=== PATIENT | female | born 1955 | race Caucasian/White ===

== ENCOUNTER 2019-03-20 06:51 | Observation (INO) | payer OTHER ==
[~2019-03-20] VITALS: Ht 162.6 cm; Wt 88.5 kg
[~2019-03-20 06:51] MED LIST: Z.0.PRILOSEC40 MG; Z.0.ZESTRIL10 MG; Z.0.ZESTRIL20 MG PO; [UNRECOGNIZED DRUG - OTHER]
--- OUTSIDE RECORDS SUMMARY | 2019-03-20 06:54 | XMS REPORT | Summary of Care ---
Author Author [facility] Organization [facility] Address Unknown Phone Unavailable Encounter HQ Encntr_alias(FIN) [id number] Date(s): 06/03/17 - 06/03/17 [facility] [address] [place] [address]- [phone] Discharge Disposition: Home or Self Care Attending Physician: Naga Laurent MD Referring Physician: Naga Lauernt MD Vital Signs No data available for this section Problem List No data available for this section Allergies, Adverse Reactions, Alerts No data available for this section Medications No data available for this section Results No data available for this section Immunizations No data available for this section Procedures No data available for this section Social History No data available for this section Assessment and Plan No data available for this section
--- OUTSIDE RECORDS SUMMARY | 2019-03-20 06:54 | XMS REPORT | Continuity of Care Document ---
Author Author [facility] Address Unknown Phone Unavailable Care Team Providers Care Front Office Administrator Name Role Phone [employer] Unavailable Unavailable Problems Problem Status Onset Date Classification Date Reported Comments Source N/A Active 05/11/2017 [facility] N39.0 Active 05/11/2017 [facility] Medications No Data Provided for This Section Allergies, Adverse Reactions, Alerts No Known Medication Allergies Immunizations No Data Provided for This Section Results No Data Provided for This Section Pathology Reports No Data Provided for This Section Diagnostic Reports Report Value Date Source Renal Stone CT Clinical Indication: ct dlp 888 mGycm - N39.0 Urinary tract infection, site not specified; patient states she has a lot of bladder infections; Comparison: None TECHNIQUE: Sequential trans-axial images were obtained with a multi-detector helical CT without administration of IV contrast. Coronal and sagittal reconstructions were obtained. Oral Contrast: Not given CT Radiation Dose DLP 888 mGy-cm FINDINGS: LUNG BASES: Unremarkable. : No urolithiasis. No hydronephrosis. No renal contour deforming masses. No perinephric fluid collections. The bladder is grossly normal. ABDOMINAL ORGANS: The noncontrast images of the spleen, pancreas, and adrenals are unremarkable. The gallbladder is present. Diffuse hypoattenuation of the hepatic parenchyma compatible with hepatic steatosis. The hepatic dome is excluded from the [id number]. GI: No evidence of bowel obstruction. Mild constipation. No bowel wall thickening or perienteric inflammation. The appendix is not visualized. PERITONEUM AND RETROPERITONEUM: There is no abdominal or pelvic lymphadenopathy. There is no pneumoperitoneum or ascites. The retroperitoneal region appears unremarkable. The abdominal aorta shows atherosclerosis without aneurysm. MSK: There are no acute osseous abnormalities seen. IMPRESSION: 1. No acute abnormality on noncontrast CT examination of the abdomen and pelvis. 2. Hepatic steatosis. SL: FRAN 06/03/2017 [facility] Consultation Notes No Data Provided for This Section Discharge Summaries No Data Provided for This Section History and Physicals No Data Provided for This Section Vital Signs No Data Provided for This Section Encounters Location Location Details Encounter Type Encounter Number Reason For Visit Attending Provider ADM Date DC Date Status Source [facility] Out[facility] [id number] Naga Laurent 06/03/2017 06/04/2017 [facility] Procedures No Data Provided for This Section Assessment and Plan No Data Provided for This Section Plan of Care No Data Provided for This Section Social History Social History Date Source No data available for this section 06/04/2017 [facility] Family History No Data Provided for This Section Advance Directives No Data Provided for This Section Functional Status No Data Provided for This Section
--- OUTSIDE RECORDS SUMMARY | 2019-03-20 06:54 | XMS REPORT ---
Author Author [facility] Address Unknown Phone Unavailable Care Team Providers Care Personnel Counselor Name Role Phone Unavailable Unavailable Payers Payer Name Policy Type Policy Number Effective Date Expiration Date Problems This patient has no known problems. Allergies, Adverse Reactions, Alerts Allergy Name Allergy Type Status Severity Reaction(s) Onset Date Inactive Date Treating Clinician Comments codeine DA Active NE 2019-02-03 00:00:00 codeine DA Active NE 2019-02-02 00:00:00 codeine DA Active NE 2019-01-05 00:00:00 codeine DA Active 2017-04-06 00:00:00 Medications This patient has no known medications. Results Test Description Test Time Test Comments Text Results Atomic Results Result Comments GLUBED 2019-02-03 06:45:00 GLUBED (test code=GLUBED) 137 mg/dL 60-125
[2019-03-20] MEDS ORDERED: ASPIRIN 81 MG CHEW TAB PO ONE ×2 (07:30→12:00)
[2019-03-20] MEDS ORDERED: METOPROLOL SUCC50 MG PO (07:38)
[2019-03-20 08:12] LABS: BASOPHILS % 0.2 % (0.0-1.0); EOSINOPHILS # (AUTO) 0.1 (0.0-0.4); EOSINOPHILS % 1.1 % (0.0-6.0); HEMATOCRIT 39.8 % (34.2-44.1); HEMOGLOBIN 13.6 g/dL (12.0-16.0); LYMPHOCYTES # (AUTO) 1.4 (1.0-3.2); MEAN CORPUSCULAR HEMOGLOBIN 30.8 pg (28-32); MEAN CORPUSCULAR HGB CONC 34.2 g/dL (31-35); MEAN CORPUSCULAR VOLUME 90.2 fL (81-99); MONOCYTES # (AUTO) 0.6 (0.2-0.8); MONOCYTES % 7.4 % (4.4-11.3); NEUTROPHILS # (AUTO) 6.2 (2.1-6.9); NEUTROPHILS % 73.8 % (38.7-80.0); PLATELET COUNT 255 x10e3/uL (140-360); RED BLOOD COUNT 4.41 x10e6/uL (3.6-5.1); RED CELL DISTRIBUTION WIDTH 11.9 % (11.7-14.4)
[2019-03-20 08:33] LABS: INR 0.94; PARTIAL THROMBOPLASTIN TIME 32.7 seconds (23.8-35.5); PROTHROMBIN TIME 13.1 seconds (11.9-14.5)
[2019-03-20 08:36] LABS: BILIRUBIN,URINE NEGATIVE (NEGATIVE); CLARITY,URINE CLOUDY (CLEAR); COLOR,URINE YELLOW (YELLOW); KETONES,URINE NEGATIVE (NEGATIVE); LEUKOCYTE ESTERASE ,URINE MODERATE (NEGATIVE); NITRITE,URINE POSITIVE (NEGATIVE); PROTEIN,URINE DIPSTICK TRACE (NEGATIVE); URINE UROBILINOGEN 0.2 mg/dL (0.2 - 1)
[2019-03-20 08:42] LABS: ALANINE AMINOTRANSFERASE 12 IU/L (0-55); ALBUMIN 3.6 g/dL (3.5-5.0); ALBUMIN/GLOBULIN RATIO 0.9 (0.8-2.0); ALKALINE PHOSPHATASE 84 IU/L (40-150); ANION GAP 13.9 mmol/L (8-16); BLOOD UREA NITROGEN 12 mg/dL (7-26); BUN/CREATININE RATIO 14 (6-25); CALCIUM 9.8 mg/dL (8.4-10.2); CARBON DIOXIDE 25 mmol/L (22-29); CHLORIDE 102 mmol/L (98-107); CREATINE KINASE 66 IU/L (29-168); CREATININE, SERUM 0.87 mg/dL (0.57-1.11); EST GLOMERULAR FILTRATION RATE > 60 ML/MIN (60-); GLUCOSE 151 mg/dL (74-118); POTASSIUM 3.9 mmol/L (3.5-5.1); SODIUM 137 mmol/L (136-145)
[2019-03-20] MEDS ORDERED: FLOMAX0.4 MG PO (09:25)
[2019-03-20] MEDS ORDERED: ENOXAPARIN SODIUM INJ 100 MG/ML SYR SC ONE (09:30)
--- NOTE | 2019-03-20 09:57 | Diagnostic Imaging Report ---
EXAMINATION: CHEST SINGLE (PORTABLE) INDICATION: Chest pain COMPARISON: None FINDINGS: LINES/TUBES:EKG leads overlie the chest. LUNGS:The lungs are moderately inflated. Mild bibasilar subsegmental atelectasis. No focal consolidation or pulmonary edema. PLEURA:No pleural effusion or pneumothorax. MEDIASTINUM:The cardiomediastinal silhouette appears normal in size and shape. Atherosclerotic calcifications of the thoracic aorta. BONES/SOFT TISSUES:No acute osseous injury. Partially visualized cervical fusion hardware. ABDOMEN:No free air under the diaphragm. IMPRESSION: Mild bibasilar subsegmental atelectasis. No focal pneumonia or pulmonary edema. Signed by: Gwen Ma MD on 03/20/2019 9:54 AM
[2019-03-20] MEDS ORDERED: ONDANSETRON HCL INJ 2MG/ML 2ML 2 MG/ML VIAL IV PRN (10:15)
[2019-03-20] MEDS ORDERED: FAMOTIDINE 20 MG/2 ML VIAL IV SCH (10:15)
--- OUTSIDE RECORDS SUMMARY | 2019-03-20 10:36 | XMS REPORT | Continuity of Care Document ---
Author Author [facility] Address Unknown Phone Unavailable Care Team Providers Care Spool Cleaner Hand Name Role Phone [employer] Unavailable Unavailable Problems Problem Status Onset Date Classification Date Reported Comments Source N/A Active 05/11/2017 [facility] N39.0 Active 05/11/2017 [facility] Medications No Data Provided for This Section [...] The hepatic dome is excluded from the [id number]. GI: No evidence of bowel obstruction. Mild [...] pelvis. 2. Hepatic steatosis. SL: FRAN 06/03/2017 [facility] Consultation Notes No Data Provided for This Section Discharge Summaries No Data Provided for This Section History and Physicals No Data Provided for This Section Vital Signs No Data Provided for This Section Encounters Location Location Details Encounter Type Encounter Number Reason For Visit Attending Provider ADM Date DC Date Status Source [facility] Outpatient [id number] Naga Laurent 06/03/2017 06/04/2017 [facility] Procedures No Data Provided for This Section Assessment and Plan No Data Provided for This Section Plan of Care No Data Provided for This Section Social History Social History Date Source No data available for this section 06/04/2017 [facility] Family History No Data Provided for This Section Advance Directives No Data Provided for This Section Functional Status No Data Provided for This Section
--- NOTE | 2019-03-20 10:42 | Diagnostic Imaging Report ---
EXAM: CT Chest WITH contrast- Pulmonary Embolism Protocol INDICATION: Shortness of breath, chest pain COMPARISON: Chest radiograph of earlier the same day TECHNIQUE: Chest was scanned utilizing a multidetector helical scanner from the lung apex through the level of the diaphragm after administration of IV contrast. Thin section reconstructions were obtained with special concentration on the pulmonary arteries. Coronal and sagittal reformations were obtained. Pulmonary embolism protocol was performed. IV CONTRAST: 100 cc of Isovue 370 RADIATION DOSE: Total DLP: 502.6 mGy*cm Dose modulation, iterative reconstruction, and/or weight based adjustment of the mA/kV was utilized to reduce the radiation dose to as low as reasonably achievable. COMPLICATIONS: None FINDINGS: LINES/ TUBES: None. PULMONARY ARTERIES: No filling defect is identified within the pulmonary arteries to the segmental level. The subsegmental pulmonary arteries are not well opacified. Main pulmonary artery measures 2.4 cm in diameter. LUNGS AND AIRWAYS: The central airways are patent. No focal consolidation or pulmonary edema. Bilateral upper lobe dependent areas of geographic mosaic attenuation likely correspond with emphysematous change and air trapping. No suspicious pulmonary nodule. PLEURA: No pleural effusion. No pneumothorax. HEART AND MEDIASTINUM: The thyroid gland is normal. No supraclavicular, axillary, mediastinal, or hilar lymphadenopathy. The heart is not enlarged. No pericardial effusion. Atherosclerotic calcifications of the coronary arteries and thoracic aorta. No evidence of right heart strain. Small sliding hiatal hernia. UPPER ABDOMEN: Limited views of the upper abdomen demonstrate hepatic steatosis and a hypodense 1.5 cm lesion in segment 2 of the liver, likely a cyst. No focal abnormalities of the partially visualized spleen, adrenals, left kidney, pancreas. BONES: No acute osseous injury. SOFT TISSUES: Unremarkable. IMPRESSION: No pulmonary embolism. Upper lobe dependent areas of geographic mosaic attenuation likely correspond with emphysematous change and air trapping. Diffuse atherosclerotic calcifications, including of the coronary arteries. Hepatic steatosis. Signed by: Gwen Ma MD on 03/20/2019 10:39 AM
[2019-03-20 11:24] LABS: BACTERIA,URINE FEW /HPF; EPITHELIAL CELLS,URINE FEW /LPF
[2019-03-20 14:21] LABS: CREATINE KINASE 53 IU/L (29-168)
[2019-03-20] MEDS ORDERED: IOPAMIDOL 370 MG/ML 200 ML INFUS..BTL INJ ONE (14:36)
[2019-03-20] MEDS ORDERED: SODIUM CHLORIDE 0.9% 50ML 50 ML ONE (14:36)
[2019-03-20] MEDS ORDERED: ACETAMINOPHEN 325 MG TAB PO PRN (17:00)
[2019-03-20] MEDS ORDERED: GLIPIZIDE5 MG PO (18:08)
--- NOTE | 2019-03-20 18:44 | Consultation ---
DATE OF CONSULTATION: CLINICAL HISTORY: This is a 63-year-old white woman seen in the emergency room at [facility] because of chest pain, lasting approximately 10 to 15 minutes, spontaneously resolving. This patient has been complaining of dyspnea with exertion for approximately 10 years. In 2013, she underwent nuclear stress test, which was negative. Subsequently, she has not noticed any worsening in her dyspnea with exertion. She denies any exertion-related chest pains. Has history of hypertension, for which she takes metoprolol. Has history of diabetes, for which she takes glipizide. She has diet-controlled hyperlipidemia and has history of hiatal hernia. PAST SURGICAL HISTORY: Remarkable for section x2, appendectomy, carpal tunnel surgery x2 via ulnar nerve surgery, and C-spine surgery. FAMILY HISTORY: Father from brain cancer. Mother from stomach cancer. Two sisters are healthy. Brother is unknown. PERSONAL AND SOCIAL HISTORY: She is a medical secretary receptionist. She has a [id number] history of smoking. Has not smoked for the past 19 years. She denies excessive drinking. REVIEW OF SYSTEMS: Noncontributory. PHYSICAL EXAMINATION: GENERAL: She is alert, coherent, appears to be comfortable. CARDIAC: Jugular veins are nondistended. S1 and S2 are regular. There is no appreciable murmur. LUNGS: Clear. ABDOMEN: Soft. Bowel sounds are present. EXTREMITIES: Show no cyanosis, clubbing, or edema. LABORATORY STUDIES: Electrocardiogram shows sinus tachycardia at 104 beats per minute. No acute changes. Chest x-ray was negative. CT scan of the chest showed no evidence of pulmonary embolism, although her D-dimer was slightly elevated at 0.7. Urinalysis was positive for nitrite with 6 to 10 wbc's, few bacteria. White count is 8,300, hemoglobin 13.6, and platelet count 255,000. IMPRESSION: 1. Chest pains with no previous complaints, lasting for 10 to 15 minutes, spontaneously resolving without any EKG changes and initial cardiac enzymes negative. Consider coronary artery disease with several risk factors. CT scan of the chest showed no evidence of pulmonary embolism with borderline D-dimer. 2. Type 2 diabetes. 3. Hypertension, controlled by metoprolol. 4. Diet-controlled hyperlipidemia. 5. Hiatal hernia. 6. Noncardiac surgeries as mentioned above including cervical spine surgery. 7. Obesity. RECOMMENDATIONS: Lexiscan nuclear stress test, serial enzymes, and echocardiogram. Darryl MD LINDSEY Orozco/ANGELO /[id number] cc: Norm Sheth MD
--- NOTE | 2019-03-20 19:07 | NUR ---
CALLED SPOKE WITH DR. MATTHEWS'S OFFICE TO MAKE AWARE OF PATIENT LEAVING AMA.
[2019-03-21] MEDS ORDERED: ASPIRIN 81 MG ENTERIC COATED PO SCH (09:00)
== END 2019-03-20 19:09 | disposition left against medical advice (07) ==
LOC: ER 06:51 → ERHOLD 10:33
PROVIDERS: ADMIT Internal Medicine; ATTEND Internal Medicine
DX: R07.2 Precordial pain (principal); I10 Essential (primary) hypertension; E78.5 Hyperlipidemia, unspecified; K21.9 Gastro-esophageal reflux disease without esophagitis; Z87.891 Personal history of nicotine dependence; Z82.49 Family history of ischemic heart disease and other diseases of the circulatory system; E11.9 Type 2 diabetes mellitus without complications; Z79.84 Long term (current) use of oral hypoglycemic drugs; K44.9 Diaphragmatic hernia without obstruction or gangrene; Z80.8 Family history of malignant neoplasm of other organs or systems; Z80.0 Family history of malignant neoplasm of digestive organs; E66.9 Obesity, unspecified; Z68.33 Body mass index [BMI] 33.0-33.9, adult
CPT/HCPCS: 36415; 71045; 71260; 80053; 81001; 82550; 82553; 83880; 84484; 85025; 85379; 85610; 85730; 93005; 93306; 99284; G0378; J1650; Q9967

== ENCOUNTER 2022-12-18 05:59 | Emergency (ER) | payer MEDICARE, OTHER ==
[~2022-12-18] VITALS: Ht 162.6 cm; Wt 88.5 kg
[~2022-12-18 05:59] MED LIST changes: +FLOMAX0.4 MG PO; +GLIPIZIDE5 MG PO; +METOPROLOL SUCC50 MG PO
[2022-12-18 06:50] VITALS: O2SAT 98
[2022-12-18 07:40] LABS: CLARITY,URINE CLOUDY (CLEAR); COLOR,URINE YELLOW (YELLOW)
[2022-12-18 07:41] LABS: KETONES,URINE NEGATIVE (NEGATIVE); LEUKOCYTE ESTERASE ,URINE SMALL (NEGATIVE); NITRITE,URINE NEGATIVE (NEGATIVE); PROTEIN,URINE DIPSTICK NEGATIVE (NEGATIVE); URINE UROBILINOGEN 0.2 mg/dL (0.2 - 1)
[2022-12-18 07:52] LABS: BACTERIA,URINE FEW /HPF; EPITHELIAL CELLS,URINE RARE /LPF; RBC,URINE 0-5 /HPF (0-5); TRANSITIONAL EPI CELLS,URINE RARE; WBC,URINE (MAN) >50 /HPF (0-5)
[2022-12-18] MEDS ORDERED: CEPHALEXIN500 MG PO (07:59)
== END 2022-12-18 09:02 | disposition home or self-care (01) ==
LOC: ER 06:05
DX: R30.0 Dysuria (principal); N39.0 Urinary tract infection, site not specified; I10 Essential (primary) hypertension; E78.5 Hyperlipidemia, unspecified; K21.9 Gastro-esophageal reflux disease without esophagitis
CPT/HCPCS: 81001; 87086; 87186; 99284

== ENCOUNTER 2024-07-01 06:42 | Emergency (ER) | payer MEDICARE ==
[~2024-07-01] VITALS: Ht 162.6 cm; Wt 88.5 kg
[~2024-07-01 06:42] MED LIST changes: +CEPHALEXIN500 MG PO
[2024-07-01] MEDS: ONDANSETRON HCL INJ 2MG/ML 2ML 2 MG/ML VIAL IV STA ×2 (07:10→09:24)
[2024-07-01] MEDS: SODIUM CHLORIDE 0.9% 1000ML 1,000 ML IV STA (07:11)
[2024-07-01 07:35] LABS: BASOPHILS % 0.1 % (0.0-1.0); EOSINOPHILS # (AUTO) 0.1 (0.0-0.4); EOSINOPHILS % 0.8 % (0.0-6.0); HEMATOCRIT 44.8 % (34.2-44.1); HEMOGLOBIN 14.4 g/dL (12.0-16.0); LYMPHOCYTES # (AUTO) 0.5 (1.0-3.2); LYMPHOCYTES % 3.8 % (18.0-39.1); MEAN CORPUSCULAR HEMOGLOBIN 31.9 pg (28-32); MEAN CORPUSCULAR HGB CONC 32.1 g/dL (31-35); MEAN CORPUSCULAR VOLUME 99.3 fL (81-99); MONOCYTES # (AUTO) 0.5 (0.2-0.8); MONOCYTES % 4.5 % (4.4-11.3); NEUTROPHILS # (AUTO) 10.6 (2.1-6.9); PLATELET COUNT 161 x10e3/uL (140-360); RED BLOOD COUNT 4.51 x10e6/uL (3.6-5.1); RED CELL DISTRIBUTION WIDTH 11.9 % (11.7-14.4); WHITE BLOOD COUNT 11.77 x10e3/uL (4.8-10.8)
[2024-07-01 07:54] LABS: ALBUMIN 4.3 g/dL (3.5-5.0); ALBUMIN/GLOBULIN RATIO 1.4 (0.8-2.0); ANION GAP 18.3 mmol/L (8-16); BILIRUBIN,TOTAL 0.8 mg/dL (0.2-1.2); CALCIUM 9.3 mg/dL (8.4-10.2); CORONAVIRUS COVID-19 AG NEGATIVE (NEGATIVE); CREATININE, SERUM 0.89 mg/dL (0.57-1.11); INFLUENZA A AG NEGATIVE (NEGATIVE); INFLUENZA B AG NEGATIVE (NEGATIVE); MAGNESIUM 1.9 MG/DL (1.3-2.1); POTASSIUM 4.3 mmol/L (3.5-5.1); TOTAL PROTEIN 7.4 g/dL (6.5-8.1)
[2024-07-01 08:00] LABS: INR 0.86; PROTHROMBIN TIME 12.3 seconds (11.9-14.5); TROPONIN I 0.003 ng/mL (0-0.300)
[2024-07-01 08:01] LABS: PARTIAL THROMBOPLASTIN TIME 26.3 seconds (23.8-35.5)
[2024-07-01 08:20] LABS: BILIRUBIN,URINE NEGATIVE (NEGATIVE); CLARITY,URINE CLEAR (CLEAR); COLOR,URINE YELLOW (YELLOW); GLUCOSE, URINE NEGATIVE (NEGATIVE); KETONES,URINE 2+ (NEGATIVE); LEUKOCYTE ESTERASE ,URINE NEGATIVE (NEGATIVE); NITRITE,URINE NEGATIVE (NEGATIVE); PH,URINE 6 (5 - 7); PROTEIN,URINE DIPSTICK 2+ (NEGATIVE); URINE UROBILINOGEN 0.2 mg/dL (0.2 - 1)
[2024-07-01 08:21] LABS: BACTERIA,URINE FEW /HPF; EPITHELIAL CELLS,URINE MODERATE /LPF
[2024-07-01] MEDS ORDERED: IOPAMIDOL 370 MG/ML 100 ML INFUS..BTL INJ ONE (08:32)
[2024-07-01 09:30] VITALS: BP 138/63; PULSE 107; RESP 18
[2024-07-01] MEDS ORDERED: ONDANSETRON ODT4 MG PO (09:40)
[2024-07-01 09:51] VITALS: PULSE 104; RESP 18; TEMP 98; O2SAT 99
== END 2024-07-01 09:54 | disposition home or self-care (01) ==
LOC: ER 06:51
DX: R11.2 Nausea with vomiting, unspecified (principal); K21.9 Gastro-esophageal reflux disease without esophagitis; K44.9 Diaphragmatic hernia without obstruction or gangrene; R10.9 Unspecified abdominal pain; I10 Essential (primary) hypertension; E78.5 Hyperlipidemia, unspecified; R94.31 Abnormal electrocardiogram [ECG] [EKG]
CPT/HCPCS: 36415; 71045; 74177; 76705; 80053; 81001; 82550; 83690; 83735; 84484; 85025; 85610; 85730; 87428; 93005; 99284; J2405; J2470; J7030; Q9967